=== PATIENT | male | born 1985 | race African-American/Black ===

== ENCOUNTER 2022-09-14 21:50 | Emergency (ER) | payer OTHER ==
[~2022-09-14] VITALS: Ht 190.5 cm; Wt 87.0 kg
[2022-09-14 21:57] VITALS: BP 135/92
[2022-09-14] MEDS ORDERED: BACITRACIN ZINC OINT UDPKT TOP ONE (22:15)
[2022-09-14] MEDS ORDERED: LIDOCAINE HCL/PF 1% 10 MG/ML 5ML VIAL INFIL ONE (22:15)
[2022-09-14] MEDS ORDERED: TETANUS AND DIPHTHERIA TOX/PF 0.5ML SYR (ADULT) IM ONE (23:15)
[2022-09-14] MEDS ORDERED: TETANUS, DIPHTHERIA, PERTUSSIS VAC/PF 0.5ML (>10YR OLD) IM ONE (23:30)
== END 2022-09-14 23:38 ==
LOC: ER 22:03
DX: S46.222A Laceration of muscle, fascia and tendon of other parts of biceps, left arm, initial encounter (principal); W26.8XXA Contact with other sharp object(s), not elsewhere classified, initial encounter; Y93.89 Activity, other specified; Y92.9 Unspecified place or not applicable
CPT/HCPCS: 90471; 90714; 90715; 99283; J3490; Z7610